=== PATIENT | male | born 1990 | race Caucasian/White ===

== ENCOUNTER 2022-08-26 11:33 | Outpatient (CLI) | payer OTHER, SELFPAY ==
[2022-08-26 19:50] LABS: Basophils Absolute Auto 0.1 K/mm3 (0.0-0.1); Basophils Percent Auto 0.6 % (0.2-1.2); Eosinophils Absolute Auto 1.2 K/mm3 (0-0.3); Eosinophils Percent Auto 11.7 % (0-4.4); Hematocrit 47.8 % (42.0-52.0); Hemoglobin 15.7 g/dL (14.0-18.0); Immature Granulocyte Absolute 0.03 K/mm3 (0.00-0.031); Immature Granulocyte Percent A 0.3 % (0-0.5); Lymphocytes Absolute Auto 4.13 K/mm3 (0.9-3.2); Lymphocytes Percent Auto 41.3 % (18.3-44.2); Mean Corpuscular HGB Conc 32.8 g/dl (32-36); Mean Corpuscular Volume 94.3 fl (80-100); Mean Platelet Volume 9.4 fl (7.4-10.4); Monocytes Absolute Auto 0.6 K/mm3 (0.1-0.6); Monocytes Percent Auto 6.4 % (2.6-8.5); Neutrophils Percent Auto 39.7 % (45.5-73.1); Platelet Count Result 345 k/mm3 (150-375); Red Blood Count 5.07 M/mm3 (4.6-6.20); Red Cell Distribution Width 12.7 % (11.5-14.5)
[2022-08-26 19:57] LABS: Alanine Aminotransferase 43 U/L (6-50); Albumin Level 4.4 g/dL (3.5-5.1); Alkaline Phosphatase 58 U/L (38-126); Anion Gap 6 mmol/L (8-16); Aspartate Amino Transferase 42 U/L (17-59); Bilirubin,Total 0.6 mg/dL (0.2-1.3); Blood Urea Nitrogen 14 mg/dL (9-20); Calcium 8.8 mg/dL (8.4-10.2); Carbon Dioxide 29 mmol/L (22-30); Chloride 107 mmol/L (98-107); Cholesterol 276 mg/dL (0-200); Estimated Glomerular Filt Rate > 60; Glucose 105 mg/dL (65-110); HDL Direct 39 mg/dL; Potassium 4.2 mmol/L (3.4-5.0); Sodium 142 mmol/L (137-145); Triglycerides 180 mg/dL (<150)
[2022-08-26 20:11] LABS: LDL Cholesterol Direct 184 mg/dL
[2022-08-26 21:52] LABS: Vitamin D 25 Hydroxy 24.7 ng/mL
== END 2022-08-26 11:34 | disposition home or self-care (01) ==
LOC: ANHGOSHLAB 11:35
PROVIDERS: PCP Family Medicine; Visit Provider Family Medicine
DX: Z00.00 Encounter for general adult medical examination without abnormal findings (principal); E66.9 Obesity, unspecified; E78.5 Hyperlipidemia, unspecified; E53.8 Deficiency of other specified B group vitamins; E55.9 Vitamin D deficiency, unspecified; Z13.29 Encounter for screening for other suspected endocrine disorder
CPT/HCPCS: 36415; 80053; 80061; 82306; 82607; 84443; 85025

== ENCOUNTER 2022-09-07 08:48 | Outpatient (CLI) | payer OTHER, SELFPAY ==
--- NOTE | 2022-09-14 15:39 | WPDHOMESLEEP ---
Sleep Study - Home Unattended Date of Study: 09/07/22 Ordering Provider: Markel Fox MD Interpreting Provider: Apurva Ross, DO Home Sleep Study Type: Watch PAT Height: 1.78 m Weight: 106.594 kg Body Mass Index: 33.7 Neck Circumference (inches): 17.5 [place]: 2 Reason for Sleep Study Unrefreshing sleep Sleep History the patient is a 31-year-old male with hyperlipidemia, vitamin-D deficiency and history of tobacco use that had a sleep study ordered by his primary care for evaluation of sleep apnea. The patient rarely awakens from sleep short of breath. He frequently awakens at night with heartburn, belching or cough. He occasionally snores but it is never loud enough that others complain. He occasionally has trouble sleeping when he has a cold. He rarely wakes up gasping for air throughout the night. He rarely has breathing problems at night observed by himself or others. He rarely sweats excessively at night. He denies having heart palpitations or irregular heartbeats during the night. He rarely falls asleep during the day but never while driving. He denies sleep paralysis, cataplexy and hypnagogic / hypnopompic hallucinations. He denies having trouble at school or work due to sleepiness. He denies feeling afraid of going to sleep. He rarely has nightmares and frequently remembers his dreams. He rarely has thoughts racing through his mind. He rarely feels sad or depressed. He rarely has anxiety. He occasionally has muscular tension. He rarely notices parts of his body jerk. He denies kicking during the night. He denies having crawling and aching feelings in his legs. He rarely has leg pain during the night. He denies grinding his teeth during sleep and awakening with morning jaw pain. He is rarely bothered by pain during the day and rarely awakened by pain during the night. He occasionally wakes up feeling stiff in the morning. He occasionally wakes up with sore or achy muscles. He rarely wakes up with pain in the neck, spine and other joints. He goes to bed at 12:30 a.m. on weekdays and at 1:30 a.m. on the weekends. It takes him 15-20 minutes to fall asleep. He wakes up 2-4 times throughout the night to urinate and get a drink. It takes him 5-20 minutes to fall back asleep. He wakes up at 10:30 a.m. on weekdays and at 11:30 a.m. on the weekends. He typically gets 9-10 hours of sleep per night. He will stay in bed for 30 minutes after waking up in the morning on the weekends. He currently lives alone. He does not consume any caffeinated beverages within 2 hours of bedtime. He does not engage in physical exercise before bedtime. He will watch television before falling asleep. He denies taking naps in the afternoon or the evening. He drinks 12 oz of caffeinated beverage per day. He drinks 6-10 alcoholic beverages per week. He quit smoking cigarettes 2 years ago. He does use an unspecified recreational drugs. COUNT INCLUDES THE [facility] Past Medical History Medical History GERD without esophagitis Seasonal allergies Surgical History Surgical History History of appendectomy (~2000) Social History Social History Smoking status: Current every day smoker Tobacco type: cigarettes Additional smoking assessment comments: Only smokes when drinking Alcohol intake: current Drinks per week: 12 Alcohol use details: 5-6 beers once or twice a week Substance use: current Substance use type: marijuana Lack of Transportation: No Lack of Food: Never True Current Housing: I Have Housing Concerned About Future Housing: No Difficulty Paying Gas/Electric Bills: No Difficulty Paying for Meds: No Currently Unemployed: No Education: Bachelor's Degree Difficulty w/ Childcare or Family Care: No Occupation/Education: occupation A
[2022-09-14 15:44] VITALS: BMI 33.7
== END 2022-09-08 12:49 | disposition home or self-care (01) ==
LOC: ANHCSM 08:49
PROVIDERS: PCP Family Medicine; Visit Provider Family Medicine
DX: G47.33 Obstructive sleep apnea (adult) (pediatric) (principal); K21.9 Gastro-esophageal reflux disease without esophagitis; F17.210 Nicotine dependence, cigarettes, uncomplicated
CPT/HCPCS: 95800

== ENCOUNTER → 2022-12-21 12:16 | Outpatient (CLI) | payer OTHER, SELFPAY ==
--- NOTE | ~2022-12-21 | XR_ITS ---
EXAM: [id number]_CR DATE: 12/21/2022 12:47 HISTORY: Torticollis;Cervicobrachial syndrome . COMPARISON: None available. FINDINGS: Craniocervical association and atlantoaxial joint are aligned. No prevertebral soft tissue swelling. Vertebral bodies are aligned. Vertebral body heights are maintained. Normal disc spaces. N ormal facets and posterior elements. IMPRESSION: Unremarkable cervical spine radiograph findings. Reviewed, dictated and finalized at location K.
== END ==
PROVIDERS: PCP Chiropractor; Visit Provider Chiropractor
DX: M43.6 Torticollis (principal); M53.1 Cervicobrachial syndrome
CPT/HCPCS: 72040